=== PATIENT | female | born 1945 | race African-American/Black ===

== ENCOUNTER → 2018-03-13 | Outpatient (CLI) | payer OTHER ==
[2016-10-14 14:11] VITALS: BP 170/73
--- NOTE | 2018-03-13 11:44 | VAS ---
Exam: Carotid Doppler exam History: Carotid bruit Comparison: None Findings: Mild degree of plaque is present in both carotid systems. On the right, peak systolic velocities in cm/sec of the right internal and common carotid arteries me asure 82 and 68 respectively. The greatest ICA/CCA ratio on the right is 1.2. On the left, peak systolic velocities in cm/sec of the left internal and common carotid artery measur e 95 and 81. The greatest ICA over CCA ratio on the left is 1.18. Antegrade flow is documented in patent vertebral arteries bilaterally. Impression: No hemodynamically significant carotid stenosis is seen on either side. Reported By:
== END ==
LOC: RAD 08:47
PROVIDERS: ATTEND Internal Medicine Cardiovascular Disease
DX: R09.89 Other specified symptoms and signs involving the circulatory and respiratory systems (principal)
CPT/HCPCS: 93880